=== PATIENT | female | born 1965 | race African-American/Black ===

== ENCOUNTER 2019-07-03 17:31 | Inpatient (IN) ==
[2019-07-03 18:15] LABS: Basophils # 0.1 10*3/uL (0.0-0.2); Basophils % 0.7 % (0.0-0.8); Eosinophils # 0.1 10*3/uL (0.0-0.87); Eosinophils % 0.5 % (0.00-10.9); Hematocrit 33.4 VOL% (35.7-47.0); Hemoglobin 10.9 GM/DL (12.0-16.0); Immature Granulocytes % 0.5 %; Immature Granulocytes Absolute 0.07 #; Lymphocytes # 1.4 10*3/uL (1.4-4.0); Lymphocytes % 9.2 % (21.3-54.2); Mean Corpuscular HGB Conc 32.6 GM/DL (32-36); Mean Corpuscular Volume 85.9 FL (87-102); Mean Platelet Volume 9.5 FL (9.6-12.0); Monocytes % 4.4 % (1.7-12.7); Neutrophils % 84.7 % (38.7-73.9); Platelet Count 407 T/CUMM (130-400); Red Blood Count 3.89 MC/CUMM (3.8-5.5); Red Cell Distribution Width 21.1 % (9.3-17.3); White Blood Count 14.8 T/CUMM (4-12)
[2019-07-03 18:31] LABS: INR 1.7; PT Patient Result 17.6 SECS (9.8-11.9); Partial Thromboplastin Time 22.1 SECS (23.9-33.8)
[2019-07-03 18:33] LABS: Alanine Aminotransferase 46 U/L (13-56); Albumin 2.6 G/DL (3.4-5.0); Alkaline Phosphatase 325 U/L (45-117); Amylase 75 U/L (25-115); Aspartate Amino Transferase 637 U/L (0-37); Blood Urea Nitrogen 52 MG/DL (7-18); Estimated Glom Filtration Rate 26 ML/MIN; Glucose 121 MG/DL (74-106); Osmolality,Calculated 276.7 MOS/KG (273-304); Total Protein 8.9 G/DL (6.4-8.3); Troponin I < 0.015 NG/ML (0.00-0.045)
[2019-07-03 18:38] LABS: Calcium 14.6 MG/DL (8.5-10.1)
[2019-07-03] MEDS ORDERED: methylPREDNISolone SOD SUC 125 MG/2 ML VIAL IV STA (18:45)
[2019-07-03] MEDS ORDERED: SODIUM CHLORIDE 0.9% 2,000 ML IV STA (18:45)
[2019-07-03 19:05] LABS: Apearance,Urine CLOUDY (Clear); Bilirubin,Urine Negative (Negative); Blood, Urine Negative (Negative); Glucose,Urine (UA) Negative (Negative); Hyaline Casts,Urine 65 /LPF (0-3); Ketones,Urine 5 mg/dL (Negative); Nitrite,Urine Negative (Negative); Protein,Urine 100 MG/DL; RBC,Urine 5 /HPF (0-4); Sperm,Urine Occasional /HPF (Negative); Squamous Epithelial Cell,Urine Occasional /HPF (0-10); Urine Color Amber (Yellow); Urine Specific Gravity 1.018 (1.001-1.035); WBC,Urine 6 /HPF (0-6)
[2019-07-03] MEDS ORDERED: LEVOFLOXACIN INJ 750 MG in PREMIX 1 EACH IV STA (19:17)
[2019-07-03 19:23] LABS: Barbiturates Screen,Urine Negative (Negative); Benzodiazepines Screen,Urine Negative (Negative); Cannabinoid Screen,Urine Negative (Negative); Opiate Screen,Urine Negative (Negative); Phencyclidine Screen,Urine Negative (Negative)
[2019-07-03 20:08] LABS: Ferritin 1488.8 ng/ml (8-252)
[2019-07-03] MEDS ORDERED: ONDANSETRON 4 MG/2 ML VIAL IV PRN (21:04)
[2019-07-03] MEDS ORDERED: GLUCAGON 1 MG VIAL IM PRN (21:04)
[2019-07-03] MEDS ORDERED: ACETAMINOPHEN 325 MG TABLET PO PRN (21:04)
[2019-07-03] MEDS ORDERED: DEXTROSE 50% 25 GM/50 ML VIAL IV PRN (21:04)
[2019-07-03] MEDS ORDERED: hydrALAZINE 20 MG/1 ML VIAL IV PRN (21:04)
[2019-07-03] MEDS ORDERED: ZALEPLON 5 MG CAPSULE PO PRN (21:04)
[2019-07-03] MEDS ORDERED: SODIUM CHLORIDE 0.9% 500 ML IV ONE (21:11)
[2019-07-03] MEDS ORDERED: AZITHROMYCIN INJ 500 MG in SODIUM CHLORIDE 0.9% 250 ML IV SCH (21:30)
[2019-07-03] MEDS ORDERED: ZOLEDRONIC ACID 4 MG in PREMIX 1 EACH IV ONE (22:30)
[2019-07-03] MEDS ORDERED: VANCOMYCIN INJ 1,000 MG in SODIUM CHLORIDE 0.9% 250 ML IV PRN (23:36)
[2019-07-04] MEDS: MEROPENEM 500 MG in SODIUM CHLORIDE 0.9% 100 ML IV SCH ×3 (00:05→15:56)
[2019-07-04] MEDS: AZITHROMYCIN 250 MG TABLET PO SCH ×3 (00:26→10:39)
[2019-07-04] MEDS ORDERED: VANCOMYCIN INJ 1,750 MG in SODIUM CHLORIDE 0.9% 500 ML IV ONE (01:00)
[2019-07-04] MEDS: DEXTROSE 5% NACL 0.9% 1,000 ML IV SCH ×3 (02:52→17:56)
[2019-07-04 07:13] LABS: Basophils % 0.1 % (0.0-0.8); Hematocrit 34.4 VOL% (35.7-47.0); Hemoglobin 11.1 GM/DL (12.0-16.0); Immature Granulocytes % 0.6 %; Immature Granulocytes Absolute 0.08 #; Lymphocytes # 0.7 10*3/uL (1.4-4.0); Mean Corpuscular HGB Conc 32.3 GM/DL (32-36); Mean Corpuscular Volume 85.1 FL (87-102); Monocytes % 0.6 % (1.7-12.7); Neutrophils % 93.7 % (38.7-73.9); Platelet Count 374 T/CUMM (130-400); Red Blood Count 4.04 MC/CUMM (3.8-5.5); Red Cell Distribution Width 20.9 % (9.3-17.3); White Blood Count 14.5 T/CUMM (4-12)
[2019-07-04 07:30] LABS: Calcium 13.6 MG/DL (8.5-10.1); Osmolality,Calculated 284.1 MOS/KG (273-304)
[2019-07-04 07:34] LABS: Band Neutrophils 6 % (0-10); Eosinophils 1 % (0-10); Hypochromasia 1+; Lymphocytes 5 % (20-55); Platelet Estimate Adequate; Segmented Neutrophils 88 % (50-85); Target Cells Few; Total Cells Counted 100
[2019-07-04] MEDS: PANTOPRAZOLE 40 MG TABLET PO SCH ×2 (08:11→10:39)
[2019-07-04] MEDS: DOCUSATE SODIUM 100 MG CAPSULE PO SCH ×3 (08:11→21:25)
[2019-07-04] MEDS ORDERED: MORPHINE 4 MG/1 ML VIAL IV ONE (11:15)
[2019-07-04] MEDS: SODIUM CHLORIDE 0.9% 1,000 ML IV SCH (11:29)
[2019-07-04] MEDS: MORPHINE 4 MG/1 ML VIAL IV PRN (21:24)
[2019-07-05] MEDS: SODIUM CHLORIDE 0.9% 1,000 ML IV SCH (02:18)
[2019-07-05] MEDS: MEROPENEM 500 MG in SODIUM CHLORIDE 0.9% 100 ML IV SCH ×3 (02:19→17:18)
[2019-07-05] MEDS: MORPHINE 4 MG/1 ML VIAL IV PRN ×4 (02:23→21:10)
[2019-07-05] MEDS: DEXTROSE 5% NACL 0.9% 1,000 ML IV SCH (06:30)
[2019-07-05 06:35] LABS: Basophils % 0.1 % (0.0-0.8); Hematocrit 33.1 VOL% (35.7-47.0); Hemoglobin 10.9 GM/DL (12.0-16.0); Immature Granulocytes Absolute 0.18 #; Lymphocytes % 5.4 % (21.3-54.2); Mean Corpuscular HGB Conc 32.9 GM/DL (32-36); Mean Corpuscular Volume 85.3 FL (87-102); Mean Platelet Volume 9.7 FL (9.6-12.0); Monocytes % 4.2 % (1.7-12.7); Neutrophils % 89.3 % (38.7-73.9); Platelet Count 413 T/CUMM (130-400); Red Blood Count 3.88 MC/CUMM (3.8-5.5); Red Cell Distribution Width 21.7 % (9.3-17.3); White Blood Count 18.3 T/CUMM (4-12)
[2019-07-05 06:55] LABS: Albumin 2.6 G/DL (3.4-5.0); Bilirubin,Total 3.3 MG/DL (0.2-1.0); Calcium 12.2 MG/DL (8.5-10.1); Osmolality,Calculated 289.7 MOS/KG (273-304); Total Protein 8.3 G/DL (6.4-8.3)
[2019-07-05] MEDS: PANTOPRAZOLE 40 MG TABLET PO SCH (09:53)
[2019-07-05] MEDS: DOCUSATE SODIUM 100 MG CAPSULE PO SCH ×2 (09:53→22:43)
[2019-07-05] MEDS: AZITHROMYCIN 250 MG TABLET PO SCH (09:53)
[2019-07-05] MEDS ORDERED: VANCOMYCIN INJ 1,000 MG in SODIUM CHLORIDE 0.9% 250 ML IV ONE (10:00)
[2019-07-05] MEDS: DEXTROSE 5% NACL 0.45% 1,000 ML IV SCH ×2 (11:35→19:40)
[2019-07-06] MEDS: MEROPENEM 500 MG in SODIUM CHLORIDE 0.9% 100 ML IV SCH ×4 (00:40→23:30)
[2019-07-06] MEDS: MORPHINE 4 MG/1 ML VIAL IV PRN ×2 (01:15→06:40)
[2019-07-06] MEDS: DEXTROSE 5% NACL 0.45% 1,000 ML IV SCH ×3 (06:40→19:30)
[2019-07-06] MEDS: AZITHROMYCIN 250 MG TABLET PO SCH (08:36)
[2019-07-06] MEDS: DOCUSATE SODIUM 100 MG CAPSULE PO SCH ×2 (08:36→21:41)
[2019-07-06] MEDS: PANTOPRAZOLE 40 MG TABLET PO SCH (08:36)
[2019-07-06] MEDS ORDERED: LACTULOSE 20 GM/30 ML UDCUP PO PRN (09:12)
[2019-07-06] MEDS: HYDROmorphone 2 MG/1 ML VIAL IV PRN ×4 (11:38→23:15)
[2019-07-06 12:41] LABS: Basophils % 0.2 % (0.0-0.8); Eosinophils % 0.1 % (0.00-10.9); Hematocrit 34.7 VOL% (35.7-47.0); Hemoglobin 11.4 GM/DL (12.0-16.0); Immature Granulocytes % 0.9 %; Immature Granulocytes Absolute 0.16 #; Lymphocytes % 5.5 % (21.3-54.2); Mean Corpuscular HGB Conc 32.9 GM/DL (32-36); Mean Platelet Volume 9.9 FL (9.6-12.0); Monocytes % 5.1 % (1.7-12.7); NRBC # 0.03 10*3/uL; Neutrophils % 88.2 % (38.7-73.9); Platelet Count 344 T/CUMM (130-400); Red Blood Count 4.08 MC/CUMM (3.8-5.5); Red Cell Distribution Width 22.8 % (9.3-17.3); White Blood Count 17.2 T/CUMM (4-12)
[2019-07-06 13:07] LABS: Albumin 2.4 G/DL (3.4-5.0); Bilirubin,Total 4.4 MG/DL (0.2-1.0); Calcium 11.5 MG/DL (8.5-10.1); Osmolality,Calculated 296.8 MOS/KG (273-304); Total Protein 7.9 G/DL (6.4-8.3)
[2019-07-06 13:39] LABS: Hypochromasia Slight
[2019-07-06 13:40] LABS: Microcytosis Slight; Platelet Estimate Normal
[2019-07-06] MEDS ORDERED: VANCOMYCIN INJ 1,000 MG in SODIUM CHLORIDE 0.9% 250 ML IV SCH (15:00)
[2019-07-07] MEDS: fentaNYL 50 MCG/HR PATCH TRANSDERM SCH (00:29)
[2019-07-07] MEDS: HYDROmorphone 2 MG/1 ML VIAL IV PRN ×4 (04:06→21:20)
[2019-07-07 04:34] LABS: Basophils % 0.2 % (0.0-0.8); Eosinophils # 0.1 10*3/uL (0.0-0.87); Eosinophils % 0.5 % (0.00-10.9); Hematocrit 36.8 VOL% (35.7-47.0); Immature Granulocytes % 1.1 %; Immature Granulocytes Absolute 0.18 #; Lymphocytes % 6.3 % (21.3-54.2); Mean Corpuscular HGB Conc 32.6 GM/DL (32-36); Mean Corpuscular Volume 85.8 FL (87-102); Mean Platelet Volume 10.3 FL (9.6-12.0); Monocytes % 4.6 % (1.7-12.7); NRBC # 0.03 10*3/uL; Neutrophils % 87.3 % (38.7-73.9); Platelet Count 266 T/CUMM (130-400); Red Blood Count 4.29 MC/CUMM (3.8-5.5); Red Cell Distribution Width 23.5 % (9.3-17.3); White Blood Count 16.3 T/CUMM (4-12)
[2019-07-07 05:03] LABS: Albumin 2.4 G/DL (3.4-5.0); Bilirubin,Total 4.7 MG/DL (0.2-1.0); Calcium 11.4 MG/DL (8.5-10.1); Osmolality,Calculated 293.7 MOS/KG (273-304); Total Protein 8.1 G/DL (6.4-8.3)
[2019-07-07 05:31] LABS: Anisocytosis 1+; Polychromasia Slight; Target Cells Few
[2019-07-07 05:32] LABS: Hypochromasia 1+
[2019-07-07] MEDS: DEXTROSE 5% NACL 0.45% 1,000 ML IV SCH ×4 (07:08→19:04)
[2019-07-07] MEDS: MEROPENEM 500 MG in SODIUM CHLORIDE 0.9% 100 ML IV SCH ×3 (07:58→23:40)
[2019-07-07] MEDS: AZITHROMYCIN 250 MG TABLET PO SCH (07:59)
[2019-07-07] MEDS: PANTOPRAZOLE 40 MG TABLET PO SCH (07:59)
[2019-07-07] MEDS: DOCUSATE SODIUM 100 MG CAPSULE PO SCH ×2 (07:59→21:42)
[2019-07-07] MEDS: LACTULOSE 20 GM/30 ML UDCUP PO SCH ×2 (12:43→21:42)
[2019-07-07] MEDS: INSULIN REGULAR 100 UNIT/ML SUBCUT SCH ×3 (13:17→21:20)
[2019-07-08] MEDS: HYDROmorphone 2 MG/1 ML VIAL IV PRN ×4 (04:00→20:39)
[2019-07-08] MEDS: DEXTROSE 5% NACL 0.45% 1,000 ML IV SCH ×3 (04:05→23:31)
[2019-07-08 09:37] LABS: Basophils % 0.2 % (0.0-0.8); Eosinophils # 0.1 10*3/uL (0.0-0.87); Eosinophils % 0.3 % (0.00-10.9); Hemoglobin 12.2 GM/DL (12.0-16.0); Immature Granulocytes % 1.4 %; Immature Granulocytes Absolute 0.27 #; Lymphocytes # 1.1 10*3/uL (1.4-4.0); Lymphocytes % 5.6 % (21.3-54.2); Mean Corpuscular Volume 86.2 FL (87-102); Mean Platelet Volume 10.5 FL (9.6-12.0); Monocytes % 5.1 % (1.7-12.7); NRBC # 0.09 10*3/uL; Neutrophils % 87.4 % (38.7-73.9); Platelet Count 281 T/CUMM (130-400); Red Blood Count 4.29 MC/CUMM (3.8-5.5); Red Cell Distribution Width 23.5 % (9.3-17.3); White Blood Count 19.6 T/CUMM (4-12)
[2019-07-08] MEDS: INSULIN REGULAR 100 UNIT/ML SUBCUT SCH ×4 (09:41→20:40)
[2019-07-08] MEDS: AZITHROMYCIN 250 MG TABLET PO SCH (09:42)
[2019-07-08] MEDS: LACTULOSE 20 GM/30 ML UDCUP PO SCH ×2 (09:42→22:19)
[2019-07-08] MEDS: PANTOPRAZOLE 40 MG TABLET PO SCH (09:43)
[2019-07-08] MEDS: MEROPENEM 500 MG in SODIUM CHLORIDE 0.9% 100 ML IV SCH ×2 (09:43→16:10)
[2019-07-08] MEDS: DOCUSATE SODIUM 100 MG CAPSULE PO SCH ×2 (09:43→22:19)
[2019-07-08 09:55] LABS: Platelet Estimate Adequate
[2019-07-08 10:05] LABS: Albumin 2.3 G/DL (3.4-5.0); Bilirubin,Total 5.8 MG/DL (0.2-1.0); Calcium 10.6 MG/DL (8.5-10.1); Osmolality,Calculated 290.8 MOS/KG (273-304); Total Protein 8.1 G/DL (6.4-8.3)
[2019-07-09] MEDS: MEROPENEM 500 MG in SODIUM CHLORIDE 0.9% 100 ML IV SCH ×3 (00:30→16:50)
[2019-07-09] MEDS: HYDROmorphone 2 MG/1 ML VIAL IV PRN ×5 (00:35→22:07)
[2019-07-09 04:16] LABS: Basophils % 0.2 % (0.0-0.8); Eosinophils # 0.1 10*3/uL (0.0-0.87); Eosinophils % 0.4 % (0.00-10.9); Hematocrit 33.5 VOL% (35.7-47.0); Hemoglobin 11.2 GM/DL (12.0-16.0); Immature Granulocytes % 1.1 %; Immature Granulocytes Absolute 0.23 #; Lymphocytes # 1.1 10*3/uL (1.4-4.0); Lymphocytes % 5.4 % (21.3-54.2); Mean Corpuscular HGB Conc 33.4 GM/DL (32-36); Monocytes % 6.2 % (1.7-12.7); NRBC # 0.06 10*3/uL; Neutrophils % 86.7 % (38.7-73.9); Platelet Count 239 T/CUMM (130-400); Red Blood Count 3.99 MC/CUMM (3.8-5.5); Red Cell Distribution Width 23.6 % (9.3-17.3); White Blood Count 20.6 T/CUMM (4-12)
[2019-07-09 04:33] LABS: Albumin 2.1 G/DL (3.4-5.0); Bilirubin,Total 6.3 MG/DL (0.2-1.0); Calcium 10.2 MG/DL (8.5-10.1); Osmolality,Calculated 290.7 MOS/KG (273-304); Total Protein 7.4 G/DL (6.4-8.3)
[2019-07-09] MEDS: DEXTROSE 5% NACL 0.45% 1,000 ML IV SCH ×3 (04:33→22:06)
[2019-07-09 05:04] LABS: Band Neutrophils 2 % (0-10); Hypochromasia 1+; Lymphocytes 7 % (20-55); Platelet Estimate Adequate; Segmented Neutrophils 87 % (50-85); Target Cells Few; Total Cells Counted 100
[2019-07-09] MEDS: INSULIN REGULAR 100 UNIT/ML SUBCUT SCH ×4 (09:53→22:07)
[2019-07-09] MEDS: PANTOPRAZOLE 40 MG TABLET PO SCH (11:24)
[2019-07-09] MEDS: AZITHROMYCIN 250 MG TABLET PO SCH (11:24)
[2019-07-09] MEDS: LACTULOSE 20 GM/30 ML UDCUP PO SCH ×2 (11:24→22:06)
[2019-07-09] MEDS: DOCUSATE SODIUM 100 MG CAPSULE PO SCH ×2 (11:24→22:07)
[2019-07-09] MEDS ORDERED: LORazepam 2 MG/1 ML VIAL IV ONE (11:40)
[2019-07-10] MEDS: fentaNYL 50 MCG/HR PATCH TRANSDERM SCH (01:16)
[2019-07-10] MEDS: MEROPENEM 500 MG in SODIUM CHLORIDE 0.9% 100 ML IV SCH ×4 (01:17→23:42)
[2019-07-10 05:43] LABS: Basophils % 0.2 % (0.0-0.8); Eosinophils # 0.2 10*3/uL (0.0-0.87); Eosinophils % 0.9 % (0.00-10.9); Hematocrit 33.6 VOL% (35.7-47.0); Hemoglobin 11.2 GM/DL (12.0-16.0); Immature Granulocytes % 1.7 %; Immature Granulocytes Absolute 0.31 #; Lymphocytes # 1.1 10*3/uL (1.4-4.0); Lymphocytes % 6.3 % (21.3-54.2); Mean Corpuscular HGB Conc 33.3 GM/DL (32-36); Mean Corpuscular Volume 83.2 FL (87-102); Mean Platelet Volume 10.5 FL (9.6-12.0); Monocytes % 6.8 % (1.7-12.7); NRBC # 0.07 10*3/uL; Neutrophils % 84.1 % (38.7-73.9); Platelet Count 245 T/CUMM (130-400); Red Blood Count 4.04 MC/CUMM (3.8-5.5); Red Cell Distribution Width 23.6 % (9.3-17.3); White Blood Count 18.1 T/CUMM (4-12)
[2019-07-10 06:08] LABS: Albumin 2.1 G/DL (3.4-5.0); Bilirubin,Total 7.1 MG/DL (0.2-1.0); Calcium 9.9 MG/DL (8.5-10.1); Total Protein 7.5 G/DL (6.4-8.3)
[2019-07-10] MEDS: DEXTROSE 5% NACL 0.45% 1,000 ML IV SCH ×4 (08:15→21:24)
[2019-07-10] MEDS: INSULIN REGULAR 100 UNIT/ML SUBCUT SCH ×4 (09:59→23:04)
[2019-07-10] MEDS: LACTULOSE 20 GM/30 ML UDCUP PO SCH (10:09)
[2019-07-10] MEDS: AZITHROMYCIN 250 MG TABLET PO SCH (10:15)
[2019-07-10] MEDS: PANTOPRAZOLE 40 MG TABLET PO SCH (10:15)
[2019-07-10] MEDS: DOCUSATE SODIUM 100 MG CAPSULE PO SCH ×2 (10:15→22:00)
[2019-07-10 10:37] LABS: INR 1.8; PT Patient Result 18.9 SECS (9.8-11.9)
[2019-07-10] MEDS ORDERED: SODIUM CHLORIDE 0.9% 1,000 ML IV PRN (12:00)
[2019-07-10] MEDS ORDERED: LACTULOSE 20 GM/30 ML UDCUP PO SCH (15:00)
[2019-07-10 16:26] LABS: Glucose,CSF 115 MG/DL (40-70)
[2019-07-10] MEDS: LACTULOSE 320 GM/480 ML BOTTLE RECTAL SCH ×2 (17:31→22:02)
[2019-07-10 17:47] LABS: Lymphocytes,CSF 67 %; Monocytes,CSF 33 %; Red Blood Cell,CSF 2 C/CUMM; White Blood Cell,CSF 7 C/CUMM
[2019-07-10 17:48] LABS: Appearance,CSF Clear
[2019-07-11 07:03] LABS: Basophils # 0.1 10*3/uL (0.0-0.2); Basophils % 0.4 % (0.0-0.8); Eosinophils # 0.1 10*3/uL (0.0-0.87); Eosinophils % 0.7 % (0.00-10.9); Hematocrit 37.9 VOL% (35.7-47.0); Hemoglobin 12.4 GM/DL (12.0-16.0); Immature Granulocytes % 1.5 %; Immature Granulocytes Absolute 0.22 #; Lymphocytes # 1.1 10*3/uL (1.4-4.0); Lymphocytes % 7.5 % (21.3-54.2); Mean Corpuscular HGB Conc 32.7 GM/DL (32-36); Mean Corpuscular Volume 86.7 FL (87-102); Mean Platelet Volume 10.3 FL (9.6-12.0); Monocytes % 6.7 % (1.7-12.7); NRBC # 0.06 10*3/uL; Neutrophils % 83.2 % (38.7-73.9); Platelet Count 172 T/CUMM (130-400); Red Blood Count 4.37 MC/CUMM (3.8-5.5)
[2019-07-11 07:12] LABS: INR 1.7
[2019-07-11 07:29] LABS: Calcium 9.5 MG/DL (8.5-10.1); Osmolality,Calculated 287.8 MOS/KG (273-304)
[2019-07-11 07:33] LABS: Anisocytosis 2+; Band Neutrophils 12 % (0-10); Lymphocytes 9 % (20-55); Macrocytosis 2+; Nucleated Red Blood Cells 2 (0-5); Platelet Estimate Normal; Segmented Neutrophils 73 % (50-85); Target Cells 1+; Total Cells Counted 100
[2019-07-11] MEDS ORDERED: MORPHINE 4 MG/1 ML VIAL IV ONE (09:59)
[2019-07-11] MEDS ORDERED: fentaNYL 25 MCG/HR PATCH TRANSDERM SCH (10:30)
[2019-07-11] MEDS: INSULIN REGULAR 100 UNIT/ML SUBCUT SCH ×4 (10:31→22:36)
[2019-07-11] MEDS: MEROPENEM 500 MG in SODIUM CHLORIDE 0.9% 100 ML IV SCH ×2 (10:53→16:50)
[2019-07-11] MEDS: DOCUSATE SODIUM 100 MG CAPSULE PO SCH ×2 (10:54→22:36)
[2019-07-11] MEDS: LACTULOSE 320 GM/480 ML BOTTLE RECTAL SCH (10:54)
[2019-07-11] MEDS: AZITHROMYCIN 250 MG TABLET PO SCH (10:54)
[2019-07-11] MEDS: PANTOPRAZOLE 40 MG TABLET PO SCH (10:54)
[2019-07-11] MEDS: SODIUM CHLORIDE 0.45% 1,000 ML IV SCH (11:32)
[2019-07-11] MEDS: DEXTROSE 5% NACL 0.45% 1,000 ML IV SCH (14:22)
[2019-07-11] MEDS: MORPHINE 4 MG/1 ML VIAL IM PRN ×3 (14:34→19:41)
[2019-07-12] MEDS: MEROPENEM 500 MG in SODIUM CHLORIDE 0.9% 100 ML IV SCH ×2 (00:03→07:26)
[2019-07-12] MEDS: MORPHINE 4 MG/1 ML VIAL IM PRN ×3 (00:29→11:34)
[2019-07-12] MEDS: SODIUM CHLORIDE 0.45% 1,000 ML IV SCH (05:41)
[2019-07-12 06:11] LABS: Basophils # 0.1 10*3/uL (0.0-0.2); Basophils % 0.3 % (0.0-0.8); Eosinophils # 0.2 10*3/uL (0.0-0.87); Eosinophils % 0.9 % (0.00-10.9); Hemoglobin 10.9 GM/DL (12.0-16.0); Immature Granulocytes % 1.8 %; Immature Granulocytes Absolute 0.36 #; Lymphocytes # 1.4 10*3/uL (1.4-4.0); Lymphocytes % 6.7 % (21.3-54.2); Mean Corpuscular HGB Conc 34.1 GM/DL (32-36); Mean Corpuscular Volume 83.3 FL (87-102); Mean Platelet Volume 12.2 FL (9.6-12.0); Monocytes % 5.1 % (1.7-12.7); NRBC # 0.12 10*3/uL; Neutrophils % 85.2 % (38.7-73.9); Platelet Count 228 T/CUMM (130-400); Red Blood Count 3.84 MC/CUMM (3.8-5.5); Red Cell Distribution Width 23.9 % (9.3-17.3); White Blood Count 20.4 T/CUMM (4-12)
[2019-07-12] MEDS: INSULIN REGULAR 100 UNIT/ML SUBCUT SCH ×2 (07:39→13:29)
[2019-07-12 09:27] LABS: Band Neutrophils 3 % (0-10); Lymphocytes 8 % (20-55); Metamyelocytes 1 %; Segmented Neutrophils 85 % (50-85); Total Cells Counted 100
[2019-07-12 09:28] LABS: Burr Cells Few; Hypochromasia 1+; Microcytosis 1+; Platelet Estimate Normal; Polychromasia Slight; Spherocytes Few; Target Cells Few
[2019-07-12 11:54] VITALS: BP 113/69
[2019-07-12 12:56] LABS: VDRL Spinal Fluid Negative (Negative)
== END 2019-07-12 13:20 | disposition hospice, home (50) | DRG 435 ==
LOC: EDBD → EDUNIT# → N.ED 17:31 → SUATTDRO 21:04 → SUPCPDRO 21:04 → N.EDINP 21:04 → N.2E 22:43 → N.TELES 07-09 10:21
PROVIDERS: ADMIT Internal Medicine; ATTEND Internal Medicine